=== PATIENT | female | born 1995 | race Caucasian/White ===

== ENCOUNTER 2020-11-11 12:26 | Emergency (ER) | payer OTHER, SELFPAY ==
--- NOTE | ~2020-11-11 | XR_ITS ---
EXAMINATION: XR wrist LT min 3V DATE: 11/11/2020 13:37 INDICATION: Left wrist pain TECHNIQUE: Posteroanterior, ulnar deviation, oblique, and lateral views of the left wrist were obtain ed. COMPARISON: 04/29/2016 FINDINGS: There is no fracture, dislocation, or subluxation. The bones, soft tissues, and joint space s are normal. IMPRESSION: 1. No acute osseous abnormality. Reviewed, dictated and finalized at location A.
[2020-11-11 12:50] VITALS: BP 132/87; PULSE 87; RESP 18; TEMP 36.7; O2SAT 100
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
== END 2020-11-11 14:00 | disposition home or self-care (01) ==
PROVIDERS: Emergency Provider Nurse Practitioner Family
DX: S60.212A Contusion of left wrist, initial encounter (principal); W22.8XXA Striking against or struck by other objects, initial encounter; F17.210 Nicotine dependence, cigarettes, uncomplicated; E66.9 Obesity, unspecified; Z68.43 Body mass index [BMI] 50.0-59.9, adult
CPT/HCPCS: 73110; 99203; G0463

== ENCOUNTER 2021-01-22 15:31 | Emergency (ER) | payer OTHER, SELFPAY ==
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
[2021-01-22 15:45] VITALS: BP 150/97; PULSE 85; RESP 18; TEMP 36.8; O2SAT 100
[2021-01-22 15:59] VITALS: BP 150/97; PULSE 85; RESP 18; TEMP 36.8; O2SAT 100
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
== END 2021-01-22 18:05 | disposition home or self-care (01) ==
PROVIDERS: Emergency Provider Registered Nurse
DX: M54.5 Low back pain (principal); M54.2 Cervicalgia; R51.9 Headache, unspecified; F17.210 Nicotine dependence, cigarettes, uncomplicated
CPT/HCPCS: 72050; 72100; 99213; G0463

== ENCOUNTER 2023-10-16 10:12 | Emergency (ER) | payer OTHER, SELFPAY ==
[2023-10-16 10:20] VITALS: BP 154/92; PULSE 96; RESP 20; TEMP 37.1; O2SAT 100
--- NOTE | 2023-10-16 10:35 | ED.URI ---
HPI - URI/Sore Throat General Chief Complaint: Upper Respiratory Infection Stated Complaint: throat/nausea Time Seen by Provider: 10/16/23 10:24 Source: patient, RN notes reviewed and old records reviewed Mode of arrival: ambulatory Limitations: no limitations History of Present Illness HPI Narrative: 28-year-old female presents to [facility] for complaint of sore throat for 2 days. Patient endorses acute onset of body aches, and cold chills that started last night. 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 Patient treated at home with Tylenol with some improvement. Patient denies shortness of breath, chest pain, or any other complaint at this time. Patient denies any social history or allergies at this time. Patient endorses that she recently started a medication for her blood pressure but that she cannot recall the details of her prescription. Patient able to tolerate fluids by mouth. Related Data Home Medications Medication Instructions Recorded Confirmed losartan 50 mg tablet 50 mg PO DAILY 10/16/23 10/16/23 Allergies Allergy/AdvReac Type Severity Reaction Status Date / Time No Known Allergies Allergy Verified 10/16/23 10:30 Review of Systems Review of Systems: All systems reviewed & are unremarkable except as noted in HPI and below Constitutional: Constitutional: Reports no additional constitutional complaints Eyes: Eyes: Reports no additional eye complaints ENT: Reports as per HPI, Denies dizziness, Denies otalgia, Denies sinus pressure, Reports sore throat and Reports throat swelling Cardiovascular: Cardiovascular: Reports no additional cardiovascular complaints, Denies chest pain and Denies dyspnea Respiratory: Respiratory: Reports no additional respiratory complaints, Denies cough and Denies dyspnea Musculoskeletal: Musculoskeletal: Reports no additional musculoskeletal complaints Neurologic: Reports system reviewed and no additional complaints, except as documented Psychiatric: Psychiatric: Reports no additional psychiatric complaints [facility] Past Medical History Medical History (Updated 10/16/23 @ 10:37 by Mer Rodarte APRN) delivery delivered Obese Surgical History Surgical History (Updated 11/11/20 @ 13:48 by STEPHEN Childers) H/O section Family History Family History (Updated 11/11/20 @ 13:49 by STEPHEN Childers) Father , unknown reason Diabetes mellitus Mother Hypertension Social History Social History (Updated 11/11/20 @ 13:51 by STEPHEN Childers) Years smoked: 4 Smoking status: Current every day smoker Tobacco type: cigarettes Second hand tobacco smoke exposure: No Alcohol intake: current Substance use: never Living arrangements: with family Occupation/Education: occupation Gender identity (if verbalized by the patient): Female Sexual Orientation (if Verbalized by the Patient): Straight or Heterosexual Comments At the time of my signature, I reviewed and agree with the nursing past medical, surgical, social, and family history. There is no relevant family history pertinent to the patient complaint. Exam Const: General: cooperative, healthy appearing, comfortable, no acute distress, alert and well nourished Nutritional Appearance: well nourished Orientation/consciousness: patient oriented x3 Limitations: no limitations HENMT: Head: normal to inspection Ears: external ears normal Face/Nose/Sinus: Normal external nose present, Normal nares present, normal facial exam, No erythema and No edema Face and sinus: normal facial exam, no erythema and no edema Mouth: Yes Normal oral and palatal mucosa present Throat: posterior oropharynx abnormal edema and erythema, uvula not displaced and no uvular edema Eyes: General: appearance normal, both eyes and all related structures Neck: Neck: normal visual inspection, full ROM and
== END 2023-10-16 10:42 | disposition home or self-care (01) ==
PROVIDERS: Emergency Provider Nurse Practitioner Family
DX: J02.0 Streptococcal pharyngitis (principal); F17.210 Nicotine dependence, cigarettes, uncomplicated; E66.9 Obesity, unspecified; Z68.43 Body mass index [BMI] 50.0-59.9, adult
CPT/HCPCS: 87880; 99213; G0463

== ENCOUNTER 2025-05-27 08:41 | Emergency (ER) | payer OTHER, SELFPAY ==
--- NOTE | ~2025-05-27 | XR_ITS ---
EXAMINATION: XR hand LT min 3V DATE: 05/27/2025 09:04 INDICATION: Pain and swelling at the dorsum of the left hand post trauma TECHNIQUE: Posteroanterior, oblique and lateral views of the left hand were obtained. COMPARISON: Left wrist radiographs dated 11/11/2020 FINDINGS: Alignment is normal. No acute fracture. Old healed fracture deformity at the ulnar base of the left second proximal phalanx. Joint spaces are normal. Soft tissue swelling overlying the dorsum of the left hand. IMPRESSION: 1. No acute osseous abnormality. Reviewed, dictated and finalized at location A.
--- OUTSIDE RECORDS SUMMARY | 2025-05-27 08:45 | XMS_ITS | Clinical Summary ---
Author Organization [facility] Address [address] 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 This disclosure is being madepursuant to the Care Everywhere program and may not contain all information available regarding this patient. Last updated 18.[facility] [employer] Allergies No known active allergies Medications * Be aware that medications may not be up to date on this document. Alwaysverify current medications with the patient. ondansetron, disintegrating, (Zofran ODT) 8 MG tablet Take 1 (one) tablet by mouth every 6 hours as needed Allow tablet to dissolve on the tongue Active Vit-DSS-Fe Fum-FA ( vitamin with iron) tablet Take 1 (one) tablet by mouth once daily Active Active Problems No known active problems Family History Medical History Relation Name Comments Diabetes - Type 2 Mother Hypertension Mother Other Sister 1 Relation Name Status Comments Brother 1 Alive Brother 2 Alive Father Mother Alive Sister 1 Alive Sister 2 Alive Sister 3 Alive Social History Tobacco Use Types Packs/Day Years Used Date Smoking Tobacco: Former Cigarettes 1 6 2 016 - 2021 Smokeless Tobacco: Never Tobacco Cessation:Counseling Given: Not Answered Alcohol Use Standard Drinks/Week Comments Not Currently 0 (1 standard drink = 0.6 oz pur e alcohol) Comments No Sex and Gender Information Value Date Recorded Sex Assigned at Not on file Legal Sex Female 8:43 AM CDT Gender Identity Not on file Sexual Orientation Not on file Last Filed Vital Signs Vital Sign Reading Time Taken Comments Blood Pressure 116/70 10/16/2022 2:29 PM [employer] Pulse 96 10/16/2022 2:29 PM [employer] Temperature - - Respiratory Rate - - Oxygen Saturation 100% 10/16/2022 2:29 PM [employer] Inhaled Oxygen Concentration - - Weight 148.3 kg (327 lb) 10/16/2022 2:29 PM [employer] Height 165.1 cm (5' 5) 10/16/2022 2:29 PM [employer] Body Mass Index 54.42 10/16/2022 2:29 PM [employer] Plan of Treatment Health Maintenance Due Date Last Done Comments HIV SCREENING 2011 HEPATITIS C SCREENING 05/29/2014 DTAP/TDAP/TD VACCINES (1 - Tdap) 2015 HEPATITIS B VACCINE (1 of 3 - 19+ 3-dose series) 2015 PAP SMEAR 2017 HPV VACCINE (1 - 3-dose SCDM series) 2023 DEPRESSION SCREENING 08/18/2024 COVID-19 VACCINE (1 - 2023-2 5 season) 2025 INFLUENZA VACCINE (#1) 2025 ZOSTER VACCINE (1 of 2) 2046 HIB VACCINE Aged Out No longer eligi ble based on patient's age to complete this topic MENINGOCOCCAL (Group B) VACC INE SHARED DECISION-MAKING Aged Out No longer eligibl e based on patient's age to complete this topic MENINGOCOCCAL GROUPS A/C/Y/W VACCINE Aged Out No longer eligible b ased on patient's age to complete this topic PNEUMOCOCCAL VACCINE Aged Out No long er eligible based on patient's age to complete this topic Insurance MEDICAID [employer] [facility] [place]
--- OUTSIDE RECORDS SUMMARY | 2025-05-27 08:49 | XMS_ITS | Clinical Summary ---
Author Organization [facility] Address [address] [place] [address] Care Team Providers Care [employer] Name Role Phone Nasir Powell MD Primary Care Provider [phone] Harry Azar Unavailable Allergies Active Allergy Reactions Criticality Noted Date Comments Elderberry Swelling Medium 11/11/2024 Lips swelling Medications cholecalciferol (Vitamin D3) 2000 unit tablet Take 1 tablet (2,000 Units total) by mouth daily 30 tablet 11/27/2023 Active buPROPion XL (WELLBUTRIN XL) 150 mg 24 hr tablet Take 1 tablet (150 mg total) by mouth every morning 90 tablet 11/11/2024 Active ondansetron (ZOFRAN) 4 mg tablet Every 4-6 hours as needed 30 tablet 1 11/11/2024 Active omeprazole (PriLOSEC) 40 mg capsule Take 1 capsule (40 mg total) by mouth daily 90 capsule 1 11/11/2024 Active losartan (COZAAR) 50 mg tablet Take 1 tablet (50 mg total) by mouth daily 100 tablet 1 11/15/2024 Active naltrexone (DEPADE) 50 mg tablet TAKE 1/2 TABLET BY MOUTH DAILY 15 tablet 2 04/26/2025 Active Active Problems Problem Noted Date Diagnosed Date Rash 11/11/2024 Gastroesophageal reflux disease 11/11/2024 Microcytic anemia 11/11/2024 Overview (11/11/2024): new problem uncertain prognosis check iron panel, ferritin, repeat cbc Complex tear of lateral meniscus of right knee 0 10/31/2023 Morbid obesity with BMI of 45.0-49.9, adult 11/2023 Assessment & Plan (01/25/2025 3:39 PM CDT): Wt Readings from Last 3 Encounters: 01/25/25 (!) 167.9 kg (370 lb 3.2 oz) 11/11/24 (!) 168.3 kg (371 lb) 12/17/23 (!) 144.7 kg (319 lb) BMI Readings from Last 3 Encounters: 01/25/25 57.97 kg/m 11/11/24 58.11 kg/m 12/17/23 49.96 kg/m Not at goal of bmi <30 Continue diet and exercise BMI Follow-up includes: nutrition counseling and exercise counseling. Significantly worse as above Gained about 60 lbs from previous weight Assessment & Plan (11/11/2024 7:54 AM CDT): Wt Readings from Last 3 Encounters: 11/11/24 (!) 168.3 kg (371 lb) 12/17/23 (!) 144.7 kg (319 lb) 09/09/23 (!) 143.1 kg (315 lb 8 oz) BMI Readings from Last 3 Encounters: 11/11/24 58.11 kg/m 12/17/23 49.96 kg/m 09/09/23 50.40 kg/m Not at goal of bmi <30 Continue diet and exercise BMI Follow-up includes: nutrition counseling and exercise counseling. Significantly worse as above Gained about 60 lbs from previous weight Assessment & Plan (09/09/2023 8:23 AM FUEL RETROFITTING TECHNICIAN): Wt Readings from Last 3 Encounters: 09/09/23 (!) 143.1 kg (315 lb 8 oz) 08/21/23 (!) 142.4 kg (314 lb) 06/30/23 (!) 139.4 kg (307 lb 6.4 oz) BMI Readings from Last 3 Encounters: 09/09/23 50.40 kg/m 08/21/23 50.16 kg/m 06/30/23 49.40 kg/m Not at goal of bmi <30 Continue diet and exercise BMI Follow-up includes: nutrition counseling and exercise counseling. Assessment & Plan (08/21/2023 8:34 AM FUEL RETROFITTING TECHNICIAN): Wt Readings from Last 3 Encounters: 06/30/23 (!) 139.4 kg (307 lb 6.4 oz) 03/24/23 (!) 137 kg (302 lb) 12/16/22 (!) 147 kg (324 lb) BMI Readings from Last 3 Encounters: 06/30/23 49.40 kg/m 03/24/23 50.26 kg/m 12/16/22 53.92 kg/m Not at goal of bmi <30 Continue diet and exercise BMI Follow-up includes: nutrition counseling and exercise counseling. Class 3 severe obesity due t o excess calories without serious comorbidity with body mass index (BMI) of 45.0 to 49.9 in adult 08/21/2023 Assessment & Plan (01/25/2025 3:39 PM CDT): Wt Readings from Last 3 Encounters: 01/25/25 (!) 167.9 kg (370 lb 3.2 oz) 11/11/24 (!) 168.3 kg (371 lb) 12/17/23 (!) 144.7 kg (319 lb) BMI Readings from Last 3 Encounters: 01/25/25 57.97 kg/m 11/11/24 58.11 kg/m 12/17/23 49.96 kg/m Not at goal of bmi <30 Continue diet and exercise BMI Follow-up includes: nutrition counseling and exercise counseling. Worsening as above Will do trial with wellbutrin and naltrexone combination as glp1s likely not covered under her isnurance She would definitely benefit from significant weight loss to prevent development of DM, CAD, joint issues, back pain, as well as it is affecting her mood/worsening depression. Unfortunately insurance will not cover it Assessment & Plan (11/11/2024 8:05 AM CDT): Wt Readings from Last 3 Encounters: 11/11/24 (!) 168.3 kg (371 lb) 12/17/23 (!) 144.7 kg (319 lb) 09/09/23 (!) 143.1 kg (315 lb 8 oz) BMI Readings from Last 3 Encounters: 11/11/24 58.11 kg/m 12/17/23 49.96 kg/m 09/09/23 50.40 kg/m Not at goal of bmi <30 Continue diet and exercise BMI Follow-up includes: nutrition counseling and exercise counseling. Worsening as above Will do trial with wellbutrin and naltrexone combination as glp1s likely not covered under her isnurance She would definitely benefit from significant weight loss to prevent development of DM, CAD, joint issues, back pain, as well as it is affecting her mood/worsening depression. Unfortunately insurance will not cover it Assessment & Plan (09/09/2023 8:23 AM FUEL RETROFITTING TECHNICIAN): Wt Readings from Last 3 Encounters: 09/09/23 (!) 143.1 kg (315 lb 8 oz) 08/21/23 (!) 142.4 kg (314 lb) 06/30/23 (!) 139.4 kg (307 lb 6.4 oz) BMI Readings from Last 3 Encounters: 09/09/23 50.40 kg/m 08/21/23 50.16 kg/m 06/30/23 49.40 kg/m Not at goal of bmi <30 Continue diet and exercise BMI Follow-up includes: nutrition counseling and exercise counseling. worsening Assessment & Plan (08/21/2023 8:32 AM FUEL RETROFITTING TECHNICIAN): Wt Readings from Last 3 Encounters: 06/30/23 (!) 139.4 kg (307 lb 6.4 oz) 03/24/23 (!) 137 kg (302 lb) 12/16/22 (!) 147 kg (324 lb) BMI Readings from Last 3 Encounters: 06/30/23 49.40 kg/m 03/24/23 50.26 kg/m 12/16/22 53.92 kg/m Not at goal of bmi <30 Continue diet and exercise BMI Follow-up includes: nutrition counseling and exercise counseling. worsening Annual physical exam 08/21/2023 Assessment & Plan (11/11/2024 7:54 AM CDT): Discussed lifestyle modifications, diet and exercise. Routine blood work ordered/reviewed today. Yearly vision and dental examinations. Assessment & Plan (08/21/2023 8:43 AM FUEL RETROFITTING TECHNICIAN): Discussed lifestyle modifications, diet and exercise. Routine blood work ordered/reviewed today. Yearly vision and dental examinations. Pre-operative clearance 08/21/2023 Hypertension, essential 08/21/2023 Assessment & Plan (01/25/2025 3:43 PM CDT): BP Readings from Last 3 Encounters: 01/25/25 140/90 11/11/24 134/80 12/17/23 142/93 Vitals BP 140/90 (BP Location: Left arm, Patient Position: Sitting) Pulse 108 Resp 16 Ht 170.2 cm (5' 7.01) Wt (!) 167.9 kg (370 lb 3.2 oz) SpO2 97% BMI 57.97 kg/m Lab Results Component Value Date POTASSIUM 4.0 08/21/2023 Stable - not at goal a tthis time But pt has been missing doses/ stopped taking her medication will increase losartan to 75 mg now Okay to work without restrictions as long as she has regular follow ups Assessment & Plan (11/11/2024 7:57 AM CDT): BP Readings from Last 3 Encounters: 11/11/24 134/80 12/17/23 142/93 11/27/23 139/87 Vitals BP 134/80 (BP Location: Left arm, Patient Position: Sitting) Pulse 85 Resp 20 Ht 170.2 cm (5' 7) Wt (!) 168.3 kg (371 lb) SpO2 98% BMI 58.11 kg/m Lab Results Component Value Date POTASSIUM 4.0 08/21/2023 Stable C/w losartan 50 mg every day Assessment & Plan (09/09/2023 8:23 AM FUEL RETROFITTING TECHNICIAN): BP Readings from Last 3 Encounters: 09/09/23 132/84 08/21/23 138/89 06/30/23 (!) 174/105 Vitals BP 132/84 (BP Location: Left arm, Patient Position: Sitting) Pulse 90 Resp 16 Ht 168.5 cm (5' 6.34) Wt (!) 143.1 kg (315 lb 8 oz) SpO2 98% BMI 50.40 kg/m Lab Results Component Value Date POTASSIUM 4.0 08/21/2023 At goal at this time C/w losartan 50 mg every day Assessment & Plan (08/21/2023 8:34 AM FUEL RETROFITTING TECHNICIAN): BP Readings from Last 3 Encounters: 06/30/23 (!) 174/105 03/24/23 138/86 12/18/22 142/88 There were no vitals taken for this visit. Lab Results Component Value Date POTASSIUM 4.0 12/16/2022 New problenm Recent elevation in ortho;s office Start losartan 50 mg every day Rtc in 2-4 weeks Resolved Problems Problem Noted Date Diagnosed Date Resolved Date Term 12/16/2022 08/21/2023 Maternal care for uterine sc ar due to previous section, delivered 11/19/202211/2023 Overview (11/19/2022): Added automatically from request for surgery [id number] Immunizations Immunization Administration Dates Next Due DTP / HiB 1996,1996,1996 DTaP 01/16/2001,09/02/1997 HPV, Unspecified 04/21/2009,12/20/2008, 9 Hep B, Adolescent or Pediatric 02/17/1997,1996,1996 HiB 09/02/1997 IPV 01/16/2001 Influenza, Unspecified 11/15/2024(Deferr ed: Patient Refused),09/09/2023(Deferred: Patient Refused),09/09/2021(Deferred: Patient Refused) MMR 01/30/2020(Deferred: Contraindication),01/16/2001,09/02/1997 Meningococcal ACWY, Unspecified 10/17/2008 OPV 1996,1996,1996 Rho (D) Immune Globulin 07/02/2017 Tdap 11/12/2022,12/21/2019,07/02/2017 ,04/03/2007 Varicella 04/03/2007,01/16/2001 Surgical History Surgery Date Site/Laterality Comments SECTION two Medical History Medical History Date Comments Anemia Hypertension Family History Medical History Relation Name Comments Diabetes Father Breast cancer Maternal Grandmother Multiple myeloma Maternal Grandmother Hypertension Mother Cancer Other Diabetes Other Hypertension Other Relation Name Status Comments Father Maternal Grandmother Mother Alive Other Social History Tobacco Use Types Packs/Day Years Used Date Smoking Tobacco: Former Cigarettes 0.3 7 1 - 04/21/2022 Smokeless Tobacco: Never Tobacco Cessation:Counseling Given: Not Answered Alcohol Use Standard Drinks/Week Comments Not Currently 0 (1 standard drink = 0.6 oz pur e alcohol) Social Connection and Isolation Panel Answer Date Recorded In a typical week, how many times do you talk on the phone with family, friends, or neighbors? More than three times a week 12/16/2022 How often do you get togethe r with friends or relatives? Twice a week 12/16/2022 How often do you attend chur or adventist services? Patient declined 12/16/2022 Do you belong to any clubs o r organizations such as latter day groups, unions, fraternal or athletic groups, or school groups? Patient declined 12/16/2022 How often do you attend meet ings of the clubs or organizations you belong to? Patient declined 12/16/2022 Are you , , di vorced, , never , or living with a partner? Living with partner 12/16/2022 AUDIT-C Answer Date Recorded Q1: How often do you have a drink containing alc ohol? Monthly or less 11/11/2024 Q2: How many drinks containi ng alcohol do you have on a typical day when you are drinking? 1 or 2 11/11/2024 Q3: How often do you have si x or more drinks on one occasion? Never 11/11/2024 Overall Financial Resource Strain (CARDIA) Answe r Date Recorded How hard is it for you to pa y for the very basics like food, housing, medical care, and heating? Very hard 12/16/2022 PHQ-2 Answer Date Recorded PHQ-2 Total Score (If total score is 3 or more points, staff should administer the PHQ-9) 0 01/25/2025 [facility] [place] [facility] ional [facility] - Occupational Stress Questionnaire Answer Date Recorded Do you feel stress - tense, restless, nervous, or anxious, or unable to sleep at night because your mind is troubled all the time - these days? Not at all 12/16/2022 Exercise Vital Sign Answer Date Recorde d On average, how many days pe r week do you engage in moderate to strenuous exercise (like a brisk walk)? 0 days 12/16/2022 On average, how many minutes do you engage in exercise at this level? 0 min 12/16/2022 Hunger Vital Sign Answer Date Recorded Within the past 12 months, y ou worried that your food would run out before you got the money to buy more. Never true 12/17/19 23 Within the past 12 months, t he food you bought just didn't last and you didn't have money to get more. Never true 12/16/2022 PRAPARE - Transportation Answer Date Re corded In the past 12 months, has l ack of transportation kept you from medical appointments or from getting medications? No 08/2022 In the past 12 months, has l ack of transportation kept you from meetings, work, or from getting things needed for daily living? No 12/16/2022 Housing Stability Vital Sign Answer Prasanna e Recorded In the last 12 months, was t here a time when you were not able to pay the mortgage or rent on time? No 12/16/2022 In the last 12 months, how many places have you lived? 1 12/16/2022 In the last 12 months, was t here a time when you did not have a steady place to sleep or slept in a snf (including now)? No 12/16/2022 Personal Safety Answer Date Recorded Have you ever been in or are you currently in a harmful physical or emotional relationship or is someone making you feel afraid or unsafe? Denies 11/27/2023 Comments No Sex and Gender Information Value Date Recorded Sex Assigned at Not on file Legal Sex Female 11:05 AM FUEL RETROFITTING TECHNICIAN Gender Identity Female 03/23/2023 7:17 PM CDT Sexual Orientation Not on file Obstetrics History Para Term AB IAB SAB Ectopic Multiple Livin g Live Births 3 3 3 0 3 3 Date Outcome GA Total Labor Labor/2nd/3rd Weight Sex Type Anes PTL Vickie A1 A5 Name Clin 7 Term Vag-S pont Livin g 2019 Term 38w 0d C-Sec tion Livin g 2022 Term 39w 2d 0h 02m 0h 02m 3.347 kg (7 lb 6.1 oz) F C-Sec tion Spinal N Livin g 8 8 JUAN PABLOE RS,GI RLRAC Mireille Knowles MD Complications:None Delivery Location:This Facil ity ([facility] L [facility] D PROCEDURE) Last Filed Vital Signs Vital Sign Reading Time Taken Comments Blood Pressure 140/90 01/25/2025 3:28 PM CDT Pulse 108 01/25/2025 3:28 PM CDT Temperature 36.1 C (97 F) 11/27/2023 10:25 AM CDT Respiratory Rate 16 01/25/2025 3:28 PM CDT Oxygen Saturation 97% 01/25/2025 3:28 PM CDT Inhaled Oxygen Concentration - - Weight 167.9 kg (370 lb 3.2 oz) 01/25/2025 3:28 PM CDT Height 170.2 cm (5' 7.01) 01/25/2025 3:28 PM CD T Body Mass Index 57.97 01/25/2025 3:28 PM CDT Plan of Treatment Health Maintenance Due Date Last Done Comments Cervical Cancer Screening 1996 Hepatitis C Screening 1996 Influenza Vaccine (#1) 2025 Regular Well Visit/Exam 18-64 11/11/2025 11/11/2024, 08/21/2023 Depression Screening 01/25/2026 01/25/2025, 11/11/2024, 09/09/2023, Additional history exists DTaP/Tdap/Td Vaccine (10 - Td or Tdap) 11/12/2032 11/12/2022, 12/21/2019, 07/02/2017, Additional history exists Hepatitis B Screening Completed 02/17/1997 , 1996, 1996 Varicella Vaccines Completed 04/03/2007, 01/16/2001 HPV Vaccines Completed 04/21/2009, 12/2008, 10/17/2008 Pneumococcal vaccine <65 Aged Out No longer eligible based on patient's age to complete this topic Insurance [employer] [facility] Member Subscriber Plan / Payer (Ef fective 2020-Present) Name:Jenifer Rivera Relation to Subscriber:Self Name:Jenifer Rivera Payer ID:[id number] (NAIC) Group ID:Not on file Type:MEDICAID RISK OTHER Address: [address] [place] [id number] [facility] [place] [address] [employer] [facility] Advance Directives For more information, please contact: [phone] * Full Code (Latest Code Status on File) Date Activated Date Inactivated Comments 12/16/2022 2:37 PM 12/18/2022 6:24 PM * Full Code Date Activated Date Inactivated Comments 12/16/2022 10:09 AM 12/16/2022 2:37 PM Full CPR in c ase of cardiopulmonary arrest * Full Code Date Activated Date Inactivated Comments 01/28/2020 1:27 AM 01/30/2020 3:31 PM Full CPR in case of cardiopulmonary arrest * Full Code Date Activated Date Inactivated Comments 01/28/2020 1:26 AM 01/28/2020 1:27 AM * Full Code Date Activated Date Inactivated Comments 01/27/2020 7:00 AM 01/28/2020 1:26 AM Full CPR in case of cardiopulmonary arrest Care Teams Transportation Logistics Internship Relationship Specialty Start Date End Date Nasir Powell MD [address] [place] [address] [place] [address] PCP - General Family Medicine 08/21/23 Harry Azar PA [address] [place] [address] Orthopedic Surgery 11/27/23
[2025-05-27 08:51] VITALS: BP 175/103; PULSE 91; RESP 18; TEMP 36.6; O2SAT 100
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
== END 2025-05-27 09:25 | disposition home or self-care (01) ==
DX: S60.222A Contusion of left hand, initial encounter (principal); W20.8XXA Other cause of strike by thrown, projected or falling object, initial encounter; Y99.0 Civilian activity done for income or pay; F17.210 Nicotine dependence, cigarettes, uncomplicated; E66.9 Obesity, unspecified; Z68.43 Body mass index [BMI] 50.0-59.9, adult
CPT/HCPCS: 73130; 99213; G0463